=== PATIENT | female | born 1980 | race Caucasian/White ===

== ENCOUNTER 2017-01-06 20:28 | Emergency (ER) | payer SELFPAY ==
[~2017-01-06] VITALS: Ht 177.8 cm; Wt 58.1 kg
[~2017-01-06 20:28] MED LIST: ACHYD1T PO; CRS350T PO; DCS100C PO; FRS325T PO; HYDR-91 PO; IBP800T PO; NAPR-243 PO; PREN1TAB14 PO; PREN1TAB25 PO; PRM25T PO; TRM50T PO
--- OUTSIDE RECORDS SUMMARY | 2017-01-06 20:50 | XMS REPORT | Continuity of Care Document ---
Author Author [facility] Organization [facility] Address Unknown Phone Unavailable Allergies Medications Problems Procedures Results Encounters ACCT No. Visit Date/Time Discharge Status Pt. Type Provider Facility Loc./Unit Complaint [id number] 10/26/2012 06:10:00 2012 15:30:00 DIS Inpatient [id number] 10/24/2012 13:54:00 2012 23:59:59 CLS Outpatient
--- OUTSIDE RECORDS SUMMARY | 2017-01-06 20:50 | XMS REPORT ---
Author Author [facility] Address Unknown Care Team Providers Care Lace Weaver Name Role Phone TETE CARRION Unavailable PROBLEMS Type Condition ICD9-CM Code [id number] Code Onset Dates Condition Status SNOMED Code Assessment Dental examination Z01.20 Dec, Active [id number] ALLERGIES Substance Reaction Event Type Date Status N.K.D.A. Unknown Non Drug Allergy Dec, Unknown SOCIAL HISTORY No smoking Hx information available PLAN OF CARE VITAL SIGNS MEDICATIONS Medication Instructions Dosage Frequency Start Date End Date Duration Status Amoxicillin 500 MG Orally Three times a day 1 capsule 8h 7 days Active RESULTS No Results PROCEDURES Procedure Date Ordered Related Diagnosis Body Site LTD ORAL EVALUATION - PROBLEM FOCUS Dec 23, 2015 INTRAORL-PERIAPICAL 1 FILM [id number] Dec 23, 2015 IMMUNIZATIONS No Known Immunizations
--- NOTE | 2017-01-06 21:47 | ED General ---
General Chief Complaint: General Problems/Pain Stated Complaint: VOMITING,FEVER Nursing Triage Note: PT TO ED 8 W/ C/O N/V/D, COUGH ET CONGESTION ONSET X2 WKS. REPORTS SHE WENT TO WORK [email or web address] ET STATES "I JUST CAN'T TAKE IT ANYMORE." PT ALSO REPORTS THE LAST TIME SHE WAS SICK LIKE THIS WAS WHEN SHE WAS . NO OTHER C/O VOICED Nursing Sepsis Screen: No Definite Risk Source of Information: Patient Exam Limitations: No Limitations History of Present Illness Time Seen by Provider: 21:47 Allergies and Home Medications Allergies Coded Allergies: No Known Drug Allergies (Unverified , 01/13/09) Home Medications Minocycline HCl 100 Mg Capsule, 100 MG PO BID, #14 Ref 0 Prescribed by: FELICIANO VELIZ on 01/06/172356 Ondansetron 8 Mg Tab.rapdis, 8 MG PO Q6H PRN for NAUSEA/VOMITING-1ST LINE, #10 Ref 0 Prescribed by: FELICIANO VELIZ on 01/06/172356 Prednisone 20 Mg Tab, 40 MG PO DAILY, #8 Ref 0 Prescribed by: FELICIANO VELIZ on 01/06/172356 Past Zdzbntn-Fsaamt-Rbupgb Hx Patient Social History Alcohol Use: Denies Use Recreational Drug Use: No Smoking Status: Current Everyday Smoker Type Used: Cigarettes Recent Foreign Travel: No Contact w/Someone Who Travel: No Recent Infectious Disease Expo: No Recent Hopitalizations: No Physical Abuse: No Sexual Abuse: No Mistreated: No Fear: No Immunizations Up To Date Tetanus Booster (TDap): More than 5yrs Surgeries History of Surgeries: Yes (WISDOM TEETH AGE 16YR) Surgeries: Section, Tubal Ligation Respiratory History of Respiratory Disorde: No Cardiovascular History of Cardiac Disorders: No Neurological History of Neurological Disord: Yes Reproductive System Hx Reproductive Disorders: No Sexually Transmitted Disease: No Gastrointestinal History of Gastrointestinal Di: Yes Gastrointestinal Disorders: Gastroesophageal Reflux Musculoskeletal History of Musculoskeletal Dis: No Endocrine History of Endocrine Disorders: No Cancer History of Cancer: No Psychosocial History of Psychiatric Problem: No Suicide Risk Score: 0 Integumentary History of Skin or Integumenta: No Blood Transfusions History of Blood Disorders: No Physical Exam Vital Signs Vital Sign - Last 12Hours 01/06/17 20:42 Temp 99.9 Pulse 100 Resp 18 B/P (MAP) 133/77 Pulse Ox 97 O2 Delivery Room Air Capillary Refill : Less Than 3 Seconds Focused Exam Evaluation Lactate Level Laboratory Tests 01/06/17 22:20: Lactic Acid Level 0.83 Lactic Acid Level Laboratory Tests Test 01/06/17 22:20 Lactic Acid Level 0.83 MMOL/L (0.50-2.00) Progress/Results/Core Measures Suspected Sepsis Recent Fever Within 48 Hours: No Infection Criteria Present: None New/Unexplained Altered Menta: No Sepsis Screen: No Definite Risk Sepsis Diagnosis: SIRS Temperature:99.9 Pulse: 100 Respiratory Rate: 18 Laboratory Tests 01/06/17 22:20: White Blood Count 12.0H Blood Pressure 133 /77 Mean: 95 Laboratory Tests 01/06/17 22:20: Lactic Acid Level 0.83 Laboratory Tests 01/06/17 22:20: Creatinine 0.75, Platelet Count 191, Total Bilirubin 0.7 Results/Orders Lab Results Laboratory Tests Test 01/06/17 21:49 01/06/17 22:20 Range/Units Urine Color YELLOW Urine Clarity CLEAR Urine pH 7 5-9 Urine Specific Kersey 1.005 L 1.016-1.022 Urine Protein NEGATIVE NEGATIVE Urine Glucose (UA) NEGATIVE NEGATIVE Urine Ketones NEGATIVE NEGATIVE Urine Nitrite NEGATIVE NEGATIVE Urine Bilirubin NEGATIVE NEGATIVE Urine Urobilinogen NORMAL NORMAL MG/DL Urine Leukocyte Esterase NEGATIVE NEGATIVE Urine RBC (Auto) NEGATIVE NEGATIVE Urine RBC NONE /HPF Urine WBC NONE /HPF Urine Squamous Epithelial Cells 5-10 /HPF Urine Crystals NONE /LPF Urine Bacteria NONE /HPF Urine Casts NONE /LPF Urine Mucus NEGATIVE /LPF Urine Culture Indicated NO White Blood Count 12.0 H 4.3-11.0 10^3/uL Red Blood Count 4.49 4.35-5.85 10^6/uL Hemoglobin 13.4 11.5-16.0 G/DL Hematocrit 39 35-52 % Mean Corpuscular Volume 86 80-99 FL Mean Corpuscular Hemoglobin 30 25-34 PG Mean Corpuscular Hemoglobin Concent 35 32-36 G/DL Red Cell Distribution Width 15.0 H 10.0-14.5 % Platelet Count 191 130-400 10^3/uL Mean Platelet Volume 10.2 7.4-10.4 FL Neutrophils (%) (Auto) 87 H 42-75 % Lymphocytes (%) (Auto) 8 L 12-44 % Monocytes (%) (Auto) 5 0-12 % Eosinophils (%) (Auto) 0 0-10 % Basophils (%) (Auto) 0 0-10 % Neutrophils # (Auto) 10.4 H 1.8-7.8 X 10^3 Lymphocytes # (Auto) 1.0 1.0-4.0 X 10^3 Monocytes # (Auto) 0.6 0.0-1.0 X 10^3 Eosinophils # (Auto) 0.0 0.0-0.3 10^3/uL Basophils # (Auto) 0.0 0.0-0.1 10^3/uL Neutrophils % (Manual) 78 % Lymphocytes % (Manual) 11 % Monocytes % (Manual) 4 % Eosinophils % (Manual) 0 % Basophils % (Manual) 0 % Band Neutrophils 7 % Blood Morphology Comment NORMAL Sodium Level 136 135-145 MMOL/L Potassium Level 3.1 L 3.6-5.0 MMOL/L Chloride Level 101 98-107 MMOL/L Carbon Dioxide Level 23 21-32 MMOL/L Anion Gap 12 5-14 MMOL/L Blood Urea Nitrogen 5 L 7-18 MG/DL Creatinine 0.75 0.60-1.30 MG/DL Estimat Glomerular Filtration Rate > 60 BUN/Creatinine Ratio 7 Glucose Level 101 70-105 MG/DL Lactic Acid Level 0.83 0.50-2.00 MMOL/L Calcium Level 9.6 8.5-10.1 MG/DL Total Bilirubin 0.7 0.1-1.0 MG/DL Aspartate Amino Transf (AST/SGOT) 15 5-34 U/L Alanine Aminotransferase (ALT/SGPT) 16 0-55 U/L Alkaline Phosphatase 66 40-136 U/L Total Protein 7.9 6.4-8.2 GM/DL Albumin 3.9 3.2-4.5 GM/DL Micro Results Microbiology 01/06/17 Influenza Types A,B Antigen (LILIYA) - Final, Complete My Orders Orders - FELICIANO VELIZ Urine Bedside (01/06/17 21:11) Ua Culture If Indicated (01/06/17 21:11) Influenza A And B Antigens (01/06/17 21:12) Cbc With Automated Diff (01/06/17 22:01) Comprehensive Metabolic Panel (01/06/17 22:01) Saline Lock/Iv-Start (01/06/17 22:01) Chest Pa/Lat (2 View) (01/06/17 22:01) Albuterol/Ipra Inhalation Soln (Duoneb I (01/06/17 22:15) Ketorolac Injection (Toradol Injection) (01/06/17 22:01) Ondansetron Injection (Zofran Injectio (01/06/17 22:15) Ns Iv 1000 Ml (Sodium Chloride 0.9%) (01/06/17 22:01) Svn Sm Volume Nebulizer Rt-Rfs (01/06/17 22:01) Lactic Acid Analyzer (01/06/17 22:01) Blood Culture (01/06/17 22:01) Manual Differential (01/06/17 22:20) Albuterol/Ipra Inhalation Soln (Duoneb I (01/07/17 00:00) Svn Sm Volume Nebulizer Rt-Rfs (01/06/17 23:49) Rx-Albuterol Inhaler (Rx-Proair) (01/06/17 23:49) Prednisone Tablet (Deltasone Tablet) (01/07/17 00:00) Rx-Doxycycline Tablet (Rx-Vibramycin Tab (01/06/17 23:49) Medications Given in ED Current Medications Medications Dose Ordered Sig/Ji Route Start Time Stop Time Status Last Admin Dose Admin Albuterol/ Ipratropium 3 ml ONCE ONCE INH 01/06/17 22:15 01/06/17 22:16 DC 01/06/17 22:32 3 ML Ondansetron HCl 4 mg ONCE ONCE IVP 01/06/17 22:15 01/06/17 22:16 DC 01/06/17 22:29 4 MG Sodium Chloride 1,000 ml @ 0 mls/hr Q0M ONCE IV 01/06/17 22:01 01/06/17 22:05 DC 01/06/17 22:29 1,000 MLS/HR Vital Signs/I&O Vital Sign - Last 12Hours 01/06/17 01/06/17 20:42 22:34 Temp 99.9 Pulse 100 Resp 18 B/P (MAP) 133/77 Pulse Ox 97 97 O2 Delivery Room Air Room Air Capillary Refill : Less Than 3 Seconds Blood Pressure Mean: 95 Departure Impression Impression: Primary Impression: Acute bronchitis Additional Impression: Nausea, vomiting and diarrhea Disposition: 01 HOME, SELF-CARE Condition: Improved Departure-Patient Inst. Decision time for Depature: 23:55 Referrals: NO,LOCAL PHYSICIAN (PCP/Family) Primary Care Physician Patient Instructions: Acute Bronchitis, Adult (DC) Add. Discharge Instructions: All discharge instructions reviewed with patient and/or family. Voiced understanding. Medications as instructed. Tylenol just strength over-the- counter as directed for pain or fever. Ibuprofen 800 mg by mouth every 8 hours as needed for pain or fever. Cool humidifier. Saline nasal spray and Afrin nasal spray [id number] as needed for nasal congestion. Follow-up with your primary care provider if no improvement in symptoms in 3-5 days, call for appointment time if needed. Return to the emergency department for worsened symptoms or any other concerns. Scripts Minocycline HCl (Minocycline HCl) 100 Mg Capsule 100 MG PO BID, #14 CAP 0 Refills Prov: FELICIANO VELIZ 01/06/17 Prednisone (Prednisone) 20 Mg Tab 40 MG PO DAILY, #8 TAB 0 Refills Prov: FELICIANO VELIZ 01/06/17 Ondansetron (Ondansetron Odt) 8 Mg Tab.rapdis 8 MG PO Q6H Y for NAUSEA/VOMITING-1ST LINE, #10 TAB 0 Refills Prov: FELICIANO VELIZ 01/06/17 Work/School Note: [employer] FELICIANO VELIZ Jan 06, 2017 21:47
[2017-01-06 21:55] LABS: BILIRUBIN,URINE NEGATIVE (NEGATIVE); KETONES,URINE NEGATIVE (NEGATIVE); LEUKOCYTE ESTERASE ,URINE NEGATIVE (NEGATIVE); NITRITE,URINE NEGATIVE (NEGATIVE); PH,URINE 7 (5-9); PROTEIN,URINE NEGATIVE (NEGATIVE); UROBILINOGEN,URINE NORMAL (NORMAL)
[2017-01-06] MEDS ORDERED: KETOROLAC 30 MG/ML VIAL IVP STA (22:01)
[2017-01-06] MEDS ORDERED: NS IV 1000 ML 1,000 ML IV ONE (22:01)
[2017-01-06] MEDS ORDERED: ONDANSETRON 4 MG/2 ML (SDV) Z0FRAN IVP ONE (22:15)
[2017-01-06] MEDS ORDERED: RT-ALBUTEROL/IPRATROPIUM 3 ML (DUONEB) VIAL INH ONE (22:15)
[2017-01-06 22:42] LABS: BASOPHILS % (AUTO) 0 % (0-10); EOSINOPHILS % (AUTO) 0 % (0-10); LYMPHOCYTES % (AUTO) 8 % (12-44); MEAN CORPUSCULAR HEMOGLOBIN 30 PG (25-34); MEAN CORPUSCULAR HGB CONC 35 G/DL (32-36); MEAN CORPUSCULAR VOLUME 86 FL (80-99); MEAN PLATELET VOLUME 10.2 FL (7.4-10.4); MONOCYTES # (AUTO) 0.6 X 10^3 (0.0-1.0); MONOCYTES % (AUTO) 5 % (0-12); NEUTROPHILS # (AUTO) 10.4 X 10^3 (1.8-7.8); NEUTROPHILS % (AUTO) 87 % (42-75); PLATELET COUNT 191 10^3/uL (130-400); RED BLOOD COUNT 4.49 10^6/uL (4.35-5.85)
[2017-01-06 22:57] LABS: NEUTROPHILS % (MANUAL) 78 %
[2017-01-06 22:58] LABS: BAND NEUTROPHILS 7 %; BASOPHILS % (MANUAL) 0 %; EOSINOPHILS % (MANUAL) 0 %; LYMPHOCYTES % (MANUAL) 11 %
[2017-01-06 23:03] LABS: ALANINE AMINOTRANSFERASE 16 U/L (0-55); ALBUMIN 3.9 GM/DL (3.2-4.5); ANION GAP 12 MMOL/L (5-14); ASPARTATE AMINO TRANSFERASE 15 U/L (5-34); BILIRUBIN,TOTAL 0.7 MG/DL (0.1-1.0); BLOOD UREA NITROGEN 5 MG/DL (7-18); BUN/CREATININE RATIO 7; CALCIUM 9.6 MG/DL (8.5-10.1); CARBON DIOXIDE 23 MMOL/L (21-32); CHLORIDE 101 MMOL/L (98-107); CREATININE SERUM 0.75 MG/DL (0.60-1.30); GFR ESTIMATED > 60; GLUCOSE 101 MG/DL (70-105); POTASSIUM 3.1 MMOL/L (3.6-5.0); SODIUM 136 MMOL/L (135-145); TOTAL PROTEIN 7.9 GM/DL (6.4-8.2)
[2017-01-06] MEDS ORDERED: RX-ALBUTEROL INHALER (PROAIR) 8 GM IH STA (23:49)
[2017-01-06] MEDS ORDERED: RX-DOXYCYCLINE 100 MG (VIBRAMYCIN) TAB PPK#2 PO STA (23:49)
[2017-01-06] MEDS ORDERED: PRD20T PO (23:57)
[2017-01-06] MEDS ORDERED: ONDA8TAB13 PO (23:57)
[2017-01-06] MEDS ORDERED: MINO100C2 PO (23:57)
[2017-01-07] MEDS ORDERED: predniSONE 20 MG TAB PO ONE
[2017-01-07] MEDS ORDERED: RT-ALBUTEROL/IPRATROPIUM 3 ML (DUONEB) VIAL INH ONE
[2017-01-07 00:39] VITALS: BP 102/48
--- NOTE | 2017-01-07 07:42 | Diagnostic Imaging Report ---
Indication: Cough and fever Comparison: 01/13/2009 Findings: 2 views of the chest are obtained. Heart size is normal. The pulmonary vessels appear unremarkable. There is no pneumothorax, mediastinal widening or pleural fluid demonstrated. There is infiltrate within the medial posterior right lung base. There may also be some right middle lobe infiltrate. The left lung is clear. No effusion is seen. The osseous structures are unremarkable. Impression: Right lower and middle lobe pneumonia. Short-term followup study is recommended. Dictated by: Dictated on workstation # [id number]
== END 2017-01-07 00:38 | disposition home or self-care (01) ==
LOC: EDUNIT# 20:28 → ER 20:30
DX: J20.9 Acute bronchitis, unspecified (principal); R11.2 Nausea with vomiting, unspecified; R19.7 Diarrhea, unspecified; K21.9 Gastro-esophageal reflux disease without esophagitis; F17.210 Nicotine dependence, cigarettes, uncomplicated; Z87.59 Personal history of other complications of pregnancy, childbirth and the puerperium; Z98.51 Tubal ligation status
CPT/HCPCS: 36415; 71020; 80053; 81000; 83605; 84703; 85007; 85027; 87040; 87804; 94640; 99283